=== PATIENT | male | born 1980 | race Caucasian/White ===

== ENCOUNTER 2016-08-15 13:14 | Emergency (ER) | payer OTHER ==
[2016-08-15 13:29] VITALS: BMI 33.0
[2016-08-15] MEDS ORDERED: CLINDAMYCIN HCL 150 MG CAPSULE (FP) PO ONE (15:23)
[2016-08-15] MEDS ORDERED: CLINDAMYCIN HCL 150 MG CAPSULE (FP) ONE (15:29)
[2016-08-15 15:39] VITALS: TEMP 98.5
--- NOTE | 2016-08-15 15:45 | PDOC ---
History of Present Illness - General Chief Complaint: Edema Stated Complaint: SWOLLEN FACE Time Seen by Provider: 08/15/16 14:33 History Source: Patient Exam Limitations: No Limitations - History of Present Illness Initial Comments: 08/15/16 15:42 36-year-old male presents to the ED with complaints of left facial swelling upon awakening this morning. Patient states also has tooth discomfort but denies any recent dental work to the tooth that is causing discomfort. Patient denies fever, chills, neck pain, difficulty swallowing, or headache. Patient denies history of diabetes or immunosuppression. Timing/Duration: 24 hours Severity: moderate Associated Symptoms: reports: denies symptoms. denies: fever/chills, headaches Past History - Past Medical History Allergies/Adverse Reactions: Allergies Allergy/AdvReac Type Severity Reaction Status Date / Time No Known Allergies Allergy Verified 08/15/16 13:24 Home Medications: Ambulatory Orders NK [No Known Home Medication] 08/15/16 Other medical history: denies - Psycho/Social/Smoking Cessation Hx Suicidal Ideation: No Smoking History: Never smoked Have you smoked in the past 12 months: No Information on smoking cessation initiated: No Hx Alcohol Use: No Drug/Substance Use Hx: No Patient Lives Alone: No Lives with/in: spouse/SO Review of Systems - Review of Systems Able to Perform ROS?: Yes Constitutional: No: Symptoms Reported HEENTM: No: Symptoms Reported Respiratory: No: Symptoms reported Cardiac (ROS): No: Symptoms Reported ABD/GI: No: Symptoms Reported : No: Symptoms Reported Musculoskeletal: No: Symptoms Reported Integumentary: Yes: Lumps (left check ) Neurological: No: Symptoms reported Endocrine: No: Symptoms Reported Hematologic/Lymphatic: No: Symptoms Reported *Physical Exam - Vital Signs Last Vital Signs Temp Pulse Resp BP Pulse Ox 98.5 F 76 18 124/92 99 08/15/16 15:38 08/15/16 13:25 08/15/16 13:25 08/15/16 13:25 08/15/16 13:25 - Physical Exam General Appearance: Yes: Nourished, Appropriately Dressed. No: Apparent Distress HEENT: positive: EOMI, ISIDRA, TMs Normal, Pharynx Normal, Other (# 12 tooth tender with tapping. gingiva erythematous and edematous. No drainage) Neck: positive: Supple. negative: Lymphadenopathy (R), Lymphadenopathy (L) Respiratory/Chest: positive: Lungs Clear, Normal Breath Sounds. negative: Respiratory Distress, Accessory Muscle Use Cardiovascular: positive: Regular Rhythm, Regular Rate. negative: Murmur Gastrointestinal/Abdominal: positive: Soft. negative: Tenderness Extremity: positive: Normal Capillary Refill Integumentary: positive: Normal Color, Warm, Moist, Swelling (lt cheek edema. No palpable fluctulance. ) Neurologic: positive: Motor Strength 5/5 (ambulatory) ED Treatment Course - Medications Given in the ED: ED Medications Discontinued Medications Generic Name Dose Route Start Last Admin Trade Name Freq PRN Reason Stop Dose Admin Clindamycin HCl 450 mg 08/15/16 15:23 08/15/16 15:36 Cleocin - PO 08/15/16 15:24 450 mg ONCE ONE Administration Medical Decision Making - Medical Decision Making 08/15/16 16:00 Patient with noted left facial edema and a noted #12 dental abscess. Patient be ordered for clindamycin now and discharged home with the same and Percocet until he can follow-up with his dentist this week. *DC/Admit/Observation/Transfer Diagnosis at time of Disposition: Dental abscess - Discharge Dispostion Disposition: HOME Condition at time of disposition: Good - Referrals Referrals: Josue Joseph MD [Primary Care Provider] - - Patient Instructions Printed Discharge Instructions: DI for Tooth Decay Additional Instructions: Take clindamycin as recommended for the next 7 days 3 times a day. May take Percocet as needed for pain. Follow-up with your dentist this week.
[2016-08-15] MEDS ORDERED: OXYCODONE/APAP 5/325MG COMBO TABLET PO ONE (16:03)
[2016-08-15] MEDS ORDERED: ACETAMINOPHEN 325 MG TABLET (FP) PO ONE (16:03)
[2016-08-15] MEDS ORDERED: ACETAMINOPHEN 325 MG TABLET (FP) ONE (16:24)
[2016-08-15] MEDS ORDERED: OXYCODONE/APAP 5/325MG COMBO TABLET ONE (16:25)
[2016-08-15 16:52] VITALS: BP 118/65; PULSE 71
== END 2016-08-15 16:52 | disposition home or self-care (01) ==
LOC: JER 13:14
DX: K04.7 Periapical abscess without sinus (principal)
CPT/HCPCS: 99282-25